=== PATIENT | male | born 1975 | race Two or more races ===

== ENCOUNTER 2020-08-08 12:57 | Observation (INO) | payer BC ==
[2020-08-08] MEDS ORDERED: Aspirin 81 MG Tab.Chew PO STA (13:19)
[2020-08-08] MEDS ORDERED: Ondansetron 4 MG/2 ML SDV IVPUSH PRN (15:41)
[2020-08-08] MEDS ORDERED: Acetaminophen 325 MG Tab PO PRN (15:41)
[2020-08-08] MEDS ORDERED: Enoxaparin 40 MG/0.4 ML Syringe SUBCUT SCH (15:45)
--- NOTE | 2020-08-08 15:51 | PCM.HP.2 ---
H&P History of Present Illness - General Date of Service: 08/08/20 Admit Problem/Dx: Admission Diagnosis/Problem Admission Diagnosis/Problem Chest pain Source of Information: Patient History Limitations: Reports: No Limitations - History of Present Illness Initial Comments - Free Text/Narative: 45-year-old male presents complaining of left-sided chest pain. He has a PMH of HTN, HLD and asthma. Patient reports having intermittent, left-sided chest pain for the past 2 days. The pain is described as a "tightening" pain that will last for approximately 5 minutes before resolving spontaneously. It is not reproducible on touch. It is unrelated to activity and can occur at rest. The pain is associated with SOB and dizziness. He reports having a sore throat. He denies having any pain currently. He is quit smoking tobacco several years ago, drinks alcohol occasionally and denies any illicit drug use. He has not had any fevers, chills, blurry vision, nausea, vomiting, abdominal pain, diarrhea, numbness or tingling in extremities. In the ER, EKG showed NSR with no acute ischemic changes. CXR unremarkable. Troponin was negative. BNP and D-dimer were normal. Patient was given aspirin 324 mg. He was admitted for further evaluation and treatment. chest Pain Score (Numeric/FACES): 5 - Related Data Allergies/Adverse Reactions: Allergies Allergy/AdvReac Type Severity Reaction Status Date / Time No Known Allergies Allergy Verified 08/08/20 13:04 Home Medications: Home Meds Allopurinol [Zyloprim] 100 mg PO DAILY 08/08/20 [History] Past Medical History - Past Health History Medical/Surgical History: Denies Medical/Surgical History Social & Family History - Tobacco Use Tobacco Use Status *Q: Former Tobacco User Used Tobacco, but Quit: Yes Month/Year Tobacco Last Used: 2005 - Caffeine Use Caffeine Use: Reports: None - Recreational Drug Use Recreational Drug Use: No H&P Review of Systems - Review of Systems: Review Of Systems: Comprehensive ROS is negative, except as noted in HPI. Exam - Exam Exam: See Below - Vital Signs Vital Signs: Last Vital Signs Temp 36.8 C 08/08/20 13:01 Pulse 60 08/08/20 15:28 Resp 17 08/08/20 15:28 BP 142/85 H 08/08/20 15:28 Pulse Ox 99 08/08/20 15:28 Weight: 80.739 kg - Exam General: Alert, Oriented, Cooperative, Other (NAD) HEENT: Conjunctiva Clear, EOMI, Pupils Equal, Pupils Reactive Lungs: Clear to Auscultation, Normal Respiratory Effort Cardiovascular: Regular Rate, Regular Rhythm GI/Abdominal Exam: Normal Bowel Sounds, Soft, Non-Tender, No Distention Extremities: Normal Inspection, No Pedal Edema Peripheral Pulses: 2+: Radial (L), Radial (R) Skin: Warm, Dry, Intact Neurological: Cranial Nerves Intact, Reflexes Equal Bilateral, Strength Equal Bilateral, Normal Speech, Normal Tone Neuro Extensive - Mental Status: Alert, Oriented x3, Normal Mood/Affect Psychiatric: Alert, Normal Affect, Normal Mood - Patient Data Lab Results Last 24 hrs: Laboratory Results - last 24 hr 08/08/20 08/08/20 08/08/20 Range/Units 13:05 13:05 13:05 D-Dimer, Quantitative 0.21 (0.0-0.50) mg/L FEU Troponin I < 0.050 (0.000-0.056) ng/mL B-Natriuretic Peptide < 2 (<100) PG/ML Sepsis Event Note - Evaluation Sepsis Screening Result: No Definite Risk - Focused Exam Vital Signs: Vital Signs Temp Pulse Resp BP Pulse Ox 08/08/20 15:28 60 17 142/85 H 99 08/08/20 14:59 57 L 18 138/75 97 08/08/20 14:28 64 17 139/58 L 98 08/08/20 13:58 65 16 139/85 100 08/08/20 13:28 56 L 16 134/58 L 100 08/08/20 13:01 36.8 C 77 16 145/97 H 100 - Problem List (1) Chest pain SNOMED Code(s): 00774708 ICD Code: R07.9 - CHEST PAIN, UNSPECIFIED Status: Acute Current Visit: Yes (2) Hypertension SNOMED Code(s): 35993467 ICD Code: I10 - ESSENTIAL (PRIMARY) HYPERTENSION Status: Acute Current Visit: Yes (3) Hyperlipidemia SNOMED Code(s): 78727695 ICD Code: E78.5 - HYPERLIPIDEMIA, UNSPECIFIED Status: Acute Current Visit: Yes (4) Asthma SNOMED Code(s): 531605788 ICD Code: J45.909 - UNSPECIFIED ASTHMA, UNCOMPLICATED Status: Acute Curre nt Visit: Yes Problem List Initiated/Reviewed/Updated: Yes Orders Last 24hrs: Active Orders 24 hr Category Date Time Status Admission Status [Patient Status] [ADT] Stat ADT 08/08/20 14:42 Active Cardiac Monitoring [RC] . DIRECTED Care 08/08/20 14:42 Active Oxygen Therapy [RC] PRN Care 08/08/20 15:41 Active Up ad Oriana [RC] ASDIRECTED Care 08/08/20 15:41 Active VTE/DVT Education [RC] PER UNIT ROUTINE Care 08/08/20 15:41 Active Vital Signs [RC] Q4H Care 08/08/20 15:41 Active Heart Healthy Diet [DIET] Diet 08/08/20 Lunch Active BASIC METABOLIC PANEL,BMP [CHEM] AM Lab 08/09/20 05:11 Ordered CBC WITH AUTO DIFF [HEME] AM Lab 08/09/20 05:11 Ordered CORONAVIRUS COVID-19 RAC[facility] [MOLEC] Stat Lab 08/08/20 14:35 Ordered MAGNESIUM [CHEM] Routine Lab 08/08/20 15:44 Ordered PHOSPHORUS [CHEM] Routine Lab 08/08/20 15:44 Ordered TROPONIN I [CHEM] Q6H Lab 08/08/20 19:00 Ordered TROPONIN I [CHEM] Q6H Lab 08/09/20 01:00 Ordered TSH [CHEM] Routine Lab 08/08/20 15:44 Ordered Acetaminophen [TylenoL] Med 08/08/20 15:41 Ordered 650 mg PO Q4H PRN Enoxaparin [Lovenox] Med 08/08/20 15:45 Ordered 40 mg SUBCUT Q24H Ondansetron [Zofran] Med 08/08/20 15:41 Ordered 4 mg IVPUSH Q4H PRN Resuscitation Status Routine Resus Stat 08/08/20 15:41 Ordered Medication Orders Acetaminophen (Tylenol) 650 mg PO Q4H PRN PRN Reason: Pain (Mild 1-3)/fever Enoxaparin Sodium (Lovenox) 40 mg SUBCUT Q24H [facility] Ondansetron HCl (Zofran) 4 mg IVPUSH Q4H PRN PRN Reason: Nausea Assessment/Plan Comment:: Assessment and Plan: 1. Chest pain, ACS rule out: - Admit to med/surg. Patient on telemetry. Will trend troponins q6h x 3. - CXR unremarkable. BNP and d-dimer were normal. 2. Past medical history of HTN, HLD and asthma: - Continue home medications: 3. DVT prophylaxis: - Lovenox 40 mg subcut qd.
--- NOTE | 2020-08-08 17:17 | EDM.PDOC ---
ED HPI GENERAL MEDICAL PROBLEM - General Chief Complaint: Chest Pain Stated Complaint: CHEST PAIN Time Seen by Provider: 08/08/20 12:58 Source of Information: Reports: Patient History Limitations: Reports: No Limitations - History of Present Illness INITIAL COMMENTS - FREE TEXT/NARRATIVE: CHIEF COMPLAINT(S): Chest pain HISTORY OF PRESENT ILLNESS: This is a 45-year-old man with a past medical history of hypertension, hyperlipidemia, and asthma who comes to the emergency department with a chief complaint of chest pain. The patient states that approximately 7 hours prior to arrival he started to experience chest pain located on the left side of his chest without any radiation. He describes the pain as 6-8 out of 10. He describes it as sharp. He states that he did have associated shortness of breath but denies any diaphoresis, nausea or vomiting. He states that there are no aggravating symptoms or relieving symptoms and does not know if it is exertional or not. He states that in addition to this he has been experiencing exertional dyspnea and episodes where he feels like he is about to pass out. He has not yet had any syncope. His is at bedside and discussed that they were at the respiratory clinic this morning and they did do lab work, EKG and other evaluation and then were brought here to the emergency department for continued chest pain. The patient states that he does have a family history of cardiac disease. His uncles on his dad's side did have heart issues starting at age 41. Other than that his siblings and his parents do not have any heart issues. He states that currently he has no chest pain. He states that he took 81 mg of aspirin prior to his appointment at respiratory clinic. REVIEW OF SYSTEMS: Constitutional: Denies fever, chills. Eyes: Denies eye pain Ears, Nose, Mouth, & Throat: Denies earache Cardiovascular: Positive for chest pain and presyncope Respiratory: Positive for shortness of breath and exertional dyspnea Gastrointestinal: Denies Nausea, vomiting, diarrhea, hematochezia. Genitourinary: Denies hematuria Skin:Denies a rash MSK: Denies joint pain Neurological: Denies blurred vision, numbness, tingling, weakness Psychiatric: Denies depression PAST MEDICAL HISTORY: As per history of present illness and as reviewed below otherwise noncontributory. SURGICAL HISTORY: As per history of present illness and as reviewed below otherwise noncontributory. SOCIAL HISTORY: As per history of present illness and as reviewed below otherwise noncontributory. FAMILY HISTORY: As per history of present illness and as reviewed below otherwise noncontributory. EXAMINATION OF ORGAN SYSTEMS/BODY AREAS: Constitutional: Blood pressure is 145/97, heart rate 77, respiratory rate 16 with an oxygen saturation of 100% on room air. Temperature 36.8 General: Overall well-appearing man who is in no acute distress. Psychiatric: Appropriate mood and affect. Eyes: No scleral icterus or conjunctival erythema ENMT: Moist mucous membranes. No pharyngeal erythema Cardiovascular: Regular, rate, and rhythm. No gallops, murmurs, or rubs. Bilateral upper extremity pulses symmetric and intact. No peripheral edema. No JVD. Respiratory: Lungs clear to auscultation bilaterally. No wheezes, rales, or rhonchi. Gastrointestinal: Soft, non-tender, non-distended. Normoactive bowel sounds Genitourinary: No suprapubic tenderness Musculoskeletal: Normal range of motion. Skin: No lesions or abrasions. Neurological: Alert, GCS 15 MEDICAL DECISION MAKING AND COURSE IN THE ED WITH INTERPRETATION/REVIEW OF DIAGN OSTIC STUDIES: This is a 45-year-old man with a past medical history of hypertension and hyperlipidemia who comes to the emergency department with acute chest pain approximately 7 hours prior to arrival who was evaluated by physician at respiratory clinic and had laboratory analysis done, EKG and chest x-ray all of which were negative. They were concerned that there was a possible old posterior NM. At this time I do not have those records and they are currently faxing them in. The patient is mildly hypertensive but overall appears well. Given the duration from his symptoms his troponin should have been elevated if this is cardiac in nature. However we will repeat a troponin. We did obtain an EKG here which did not reveal any acute signs of ischemia or evidence of old posterior infarct. There was S1Q3T3 so given the exertional dyspnea and chest pain will obtain a D-dimer to evaluate for pulmonary embolism. I do not believe any other labs or imaging are indicated given they have been done prior to arrival here. We will provide the patient with an additional 243 mg of aspirin. Twelve-lead EKG interpreted by myself. Normal sinus rhythm at a rate of 62 beats per minute. Normal axis. NM interval is 167 ms. QRS duration is [address] segments are normal without elevations or depressions. There is a Q wave in lead III with T wave inversion in lead III. There is a deep S wave in S1.. Hypertrophy is apparent. No changes demonstrated from prior EKG dated at 11:16 AM August 08, 2020. Interpretation: Sinus rhythm with LVH and S1Q3T3 Labs reviewed from prior to arrival reveal a normal CBC a CMP which revealed hyperglycemia at 131, elevated triglycerides at 203. Imaging reviewed which was a chest x-ray from earlier and did not reveal any acute cardiopulmonary process. Laboratory: Repeat troponin is negative. BNP is negative. D-dimer is negative. Given the family history, history of chest pain, and presyncopal episodes with exertional dyspnea I did discuss that I would like to admit him for observation. He was amenable to this plan. I contacted Dr. Beard who accepted the patient for admission. DISPOSITION: The patient was admitted to observation telemetry in stable condition CONDITION: Fair PROCEDURES: None FINAL IMPRESSION(S)/DIAGNOSES: 1. Acute chest pain 2. Acute exertional dyspnea 3. Acute presyncope Omkar Aggarwal M.D. chest Pain Score (Numeric/FACES): 5 - Related Data Allergies Allergy/AdvReac Type Severity Reaction Status Date / Time No Known Allergies Allergy Verified 08/08/20 13:04 Home Meds: Home Meds Allopurinol [Zyloprim] 100 mg PO DAILY 08/08/20 [History] Past Medical History - Past Health History Medical/Surgical History: Denies Medical/Surgical History Social & Family History - Tobacco Use Tobacco Use Status *Q: Former Tobacco User Used Tobacco, but Quit: Yes Month/Year Tobacco Last Used: 2005 - Caffeine Use Caffeine Use: Reports: None - Recreational Drug Use Recreational Drug Use: No ED ROS GENERAL - Review of Systems Review Of Systems: See Below ED EXAM, GENERAL - Physical Exam Exam: See Below Peripheral Pulses: 2+: Radial (L), Radial (R) GI/Abdominal: Normal Bowel Sounds, Soft, Non-Tender, No Distention Extremities: Normal Inspection, No Pedal Edema Course - Vital Signs Last Recorded V/S: Last Vital Signs Temp 36.8 C 08/08/20 13:01 Pulse 92 08/08/20 15:58 Resp 17 08/08/20 15:58 BP 137/82 08/08/20 15:58 Pulse Ox 97 08/08/20 15:58 - Orders/Labs/Meds Orders: Active Orders 24 hr Category Date Time Status Admission Status [Patient Status] [ADT] Stat ADT 08/08/20 14:42 Active Cardiac Monitoring [RC] . DIRECTED Care 08/08/20 14:42 Active Medication Orders Acetaminophen (Tylenol) 650 mg PO Q4H PRN PRN Reason: Pain (Mild 1-3)/fever Enoxaparin Sodium (Lovenox) 40 mg SUBCUT Q24H [facility] Last Admin: 08/08/20 16:16 Dose: 40 mg Documented by: [id number] Ondansetron HCl (Zofran) 4 mg IVPUSH Q4H PRN PRN Reason: Nausea Labs: Laboratory Tests 08/08/20 08/08/20 08/08/20 Range/Units 13:05 13:05 13:05 D-Dimer, Quantitative 0.21 (0.0-0.50) mg/L FEU Phosphorus (2.6-4.7) mg/dL Magnesium (1.8-2.4) mg/dL Troponin I < 0.050 (0.000-0.056) ng/mL B-Natriuretic Peptide < 2 (<100) PG/ML TSH 3rd Generation (0.36-3.74) uIU/mL SARS-CoV-2 RNA (RACHEL) (NEGATIVE) 08/08/20 08/08/20 Range/Units 13:05 15:18 D-Dimer, Quantitative (0.0-0.50) mg/L FEU Phosphorus 3.4 (2.6-4.7) mg/dL Magnesium 2.4 (1.8-2.4) mg/dL Troponin I (0.000-0.056) ng/mL B-Natriuretic Peptide (<100) PG/ML TSH 3rd Generation 0.78 (0.36-3.74) uIU/mL SARS-CoV-2 RNA (RACHEL) NEGATIVE (NEGATIVE) Meds: Medications Generic Name Dose Route Start Last Admin Trade Name Freq PRN Reason Stop Dose Admin Acetaminophen 650 mg 08/08/20 15:41 Tylenol PO Q4H PRN Pain (Mild 1-3)/fever Enoxaparin Sodium 40 mg 08/08/20 15:45 08/08/20 16:16 Lovenox SUBCUT 40 mg Q24H [facility] Administration Ondansetron HCl 4 mg 08/08/20 15:41 Zofran IVPUSH Q4H PRN Nausea Discontinued Medications Generic Name Dose Route Start Last Admin Trade Name [place] PRN Reason Stop Dose Admin Aspirin 243 mg 08/08/20 13:19 08/08/20 13:57 Aspirin PO 08/08/20 13:20 243 mg ONETIME STA Administration Departure - Departure Time of Disposition: 14:42 Disposition: Refer to Observation Condition: Fair Clinical Impression: Chest pain Qualifiers: Chest pain type: unspecified Qualified Code(s): R07.9 - Chest pain, unspecified Sepsis Event Note (ED) - Evaluation Sepsis Screening Result: No Definite Risk - Focused Exam Vital Signs: Vital Signs Temp Pulse Resp BP Pulse Ox 08/08/20 15:28 60 17 142/85 H 99 08/08/20 14:59 57 L 18 138/75 97 08/08/20 14:28 64 17 139/58 L 98 08/08/20 13:58 65 16 139/85 100 08/08/20 13:28 56 L 16 134/58 L 100 08/08/20 13:01 36.8 C 77 16 145/97 H 100 - My Orders Last 24 Hours: My Active Orders 08/08/20 14:42 Admission Status [Patient Status] [ADT] Stat Cardiac Monitoring [RC] . DIRECTED - Assessment/Plan Last 24 Hours: My Active Orders 08/08/20 14:42 Admission Status [Patient Status] [ADT] Stat Cardiac Monitoring [RC] . DIRECTED
[2020-08-08] MEDS ORDERED: Losartan 50 MG Tab PO SCH ×2 (18:30→21:30)
[2020-08-08] MEDS ORDERED: Rosuvastatin 10 MG Tab PO SCH (21:00)
[2020-08-08] MEDS ORDERED: FENOFIBRATE 160 MG PO SCH (21:00)
[2020-08-09 05:40] LABS: BLOOD UREA NITROGEN,BUN 17 mg/dL (7.0-18.0); CARBON DIOXIDE,CO2 29.7 mmol/L (21.0-32.0); CHLORIDE,CL 106 mmol/L (98-107); GLUCOSE RANDOM 101 mg/dL (74-106); SODIUM,NA 142 mmol/L (136-148)
--- NOTE | 2020-08-09 14:38 | PCM.DCSUM1 ---
<George Stoner - Last Filed: 08/09/20 21:44> Discharge Summary - Hospital Course Free Text/Narrative:: 45-year-old male with PMH of HTN and HLD admitted for chest pain ACS rule out. CXR was unremarkable. Troponins trended and were negative. CBC, CMP, BNP, TSH and d-dimer were normal. No events reported on telemetry. No recurrent of chest pain during hospitalization. ECHO ordered and pending at time of discharge. Cardiology referral and scripts provided for zio patch and EKG stress test on discharge. Patient also advised to follow-up with PCP. - Discharge Data Discharge Date: 08/09/20 Discharge Disposition: Home, Self-Care 01 Condition: Stable - Referral to Home Health Primary Care Physician: Gio Estevez MD - Discharge Diagnosis/Problem(s) (1) Chest pain SNOMED Code(s): 19406909 ICD Code: R07.9 - CHEST PAIN, UNSPECIFIED Status: Acute Qualifiers: Chest pain type: unspecified Qualified Code(s): R07.9 - Chest pain, unspecified (2) Hypertension SNOMED Code(s): 47785858 ICD Code: I10 - ESSENTIAL (PRIMARY) HYPERTENSION Status: Acute (3) Hyperlipidemia SNOMED Code(s): 07627423 ICD Code: E78.5 - HYPERLIPIDEMIA, UNSPECIFIED Status: Acute (4) Asthma SNOMED Code(s): 400075128 ICD Code: J45.909 - UNSPECIFIED ASTHMA, UNCOMPLICATED Status: Acute - Patient Instructions Diet: Heart Healthy Diet, Low Sodium Activity: As Tolerated, No Strenuous Activities Notify Provider of: Fever, Increased Pain, Swelling and Redness, Drainage, Nausea and/or Vomiting - Discharge Plan *PRESCRIPTION DRUG MONITORING PROGRAM REVIEWED*: Not Applicable *COPY OF PRESCRIPTION DRUG MONITORING REPORT IN PATIENT SUNIL: Not Applicable Home Medications: Home Meds Losartan [Cozaar] 100 mg PO DAILY 08/08/20 [History] Rosuvastatin [Crestor] 20 mg PO BEDTIME 08/08/20 [History] Oxygen Therapy Mode: Room Air Patient Handouts: Exercise Stress Test, [id number], Heart-Healthy Eating Plan, [id number] Referrals: Rohit Vergara MD [Physician] - 10/08/20 11:00 am Harriett Torres MD [Resident] - 08/21/20 10:00 am - Discharge Summary/Plan Comment DC Time >30 min.: No - Patient Data Vitals - Most Recent: Last Vital Signs Temp 36.9 C 08/09/20 12:01 Pulse 56 L 08/09/20 12:01 Resp 17 08/09/20 12:01 BP 126/84 08/09/20 12:01 Pulse Ox 98 08/09/20 12:01 Weight - Most Recent: 79.016 kg I&O - Last 24 hours: Intake & Output 08/08/20 08/09/20 08/09/20 22:59 06:59 14:59 Intake Total 1440 Output Total 900 Balance 540 Lab Results - Last 24 hrs: Laboratory Results - last 24 hr 08/08/20 08/08/20 08/08/20 Range/Units 13:05 15:18 18:56 WBC (4.0-11.0) K/uL RBC (4.50-5.90) M/uL Hgb (13.0-17.0) g/dL Hct (38.0-50.0) % MCV (80.0-98.0) fL MCH (27.0-32.0) pg MCHC (31.0-37.0) g/dL RDW Std Deviation (28.0-62.0) fl RDW Coeff of Coco (11.0-15.0) % Plt Count (150-400) K/uL MPV (7.40-12.00) fL Neut % (Auto) (48.0-80.0) % Lymph % (Auto) (16.0-40.0) % Cotton % (Auto) (0.0-15.0) % Eos % (Auto) (0.0-7.0) % Baso % (Auto) (0.0-1.5) % Neut # (Auto) (1.4-5.7) K/uL Lymph # (Auto) (0.6-2.4) K/uL Cotton # (Auto) (0.0-0.8) K/uL Eos # (Auto) (0.0-0.7) K/uL Baso # (Auto) (0.0-0.1) K/uL Nucleated RBC % /100WBC Nucleated RBCs # K/uL Sodium (136-148) mmol/L Potassium (3.5-5.1) mmol/L Chloride (98-107) mmol/L Carbon Dioxide (21.0-32.0) mmol/L BUN (7.0-18.0) mg/dL Creatinine (0.8-1.3) mg/dL Est Cr Clr Drug Dosing mL/min Estimated GFR (MDRD) ml/min Glucose (74-106) mg/dL Calcium (8.5-10.1) mg/dL Phosphorus 3.4 (2.6-4.7) mg/dL Magnesium 2.4 (1.8-2.4) mg/dL Troponin I < 0.050 (0.000-0.056) ng/mL TSH 3rd Generation 0.78 (0.36-3.74) uIU/mL SARS-CoV-2 RNA (RACHEL) NEGATIVE (NEGATIVE) 08/09/20 08/09/20 08/09/20 Range/Units 00:58 04:58 04:58 WBC 6.65 (4.0-11.0) K/uL RBC 4.65 (4.50-5.90) M/uL Hgb 13.5 (13.0-17.0) g/dL Hct 42.1 (38.0-50.0) % MCV 90.5 (80.0-98.0) fL MCH 29.0 (27.0-32.0) pg MCHC 32.1 (31.0-37.0) g/dL RDW Std Deviation 42.6 (28.0-62.0) fl RDW Coeff of Coco 13 (11.0-15.0) % Plt Count 194 (150-400) K/uL MPV 10.70 (7.40-12.00) fL Neut % (Auto) 46.3 L (48.0-80.0) % Lymph % (Auto) 41.5 H (16.0-40.0) % Cotton % (Auto) 7.8 (0.0-15.0) % Eos % (Auto) 3.8 (0.0-7.0) % Baso % (Auto) 0.6 (0.0-1.5) % Neut # (Auto) 3.1 (1.4-5.7) K/uL Lymph # (Auto) 2.8 H (0.6-2.4) K/uL Cotton # (Auto) 0.5 (0.0-0.8) K/uL Eos # (Auto) 0.3 (0.0-0.7) K/uL Baso # (Auto) 0.0 (0.0-0.1) K/uL Nucleated RBC % 0.0 /100WBC Nucleated RBCs # 0 K/uL Sodium 142 (136-148) mmol/L Potassium 4.0 (3.5-5.1) mmol/L Chloride 106 (98-107) mmol/L Carbon Dioxide 29.7 (21.0-32.0) mmol/L BUN 17 (7.0-18.0) mg/dL Creatinine 0.9 (0.8-1.3) mg/dL Est Cr Clr Drug Dosing 95.50 mL/min Estimated GFR (MDRD) > 60.0 ml/min Glucose 101 (74-106) mg/dL Calcium 8.5 (8.5-10.1) mg/dL Phosphorus (2.6-4.7) mg/dL Magnesium (1.8-2.4) mg/dL Troponin I < 0.050 (0.000-0.056) ng/mL TSH 3rd Generation (0.36-3.74) uIU/mL SARS-CoV-2 RNA (RACHEL) (NEGATIVE) Med Orders - Current: Current Medications Discontinued Medications Acetaminophen (Tylenol) 650 mg PO Q4H PRN PRN Reason: Pain (Mild 1-3)/fever Aspirin (Aspirin) 243 mg PO ONETIME STA Stop: 08/08/20 13:20 Last Admin: 08/08/20 13:57 Dose: 243 mg Documented by: Enoxaparin Sodium (Lovenox) 40 mg SUBCUT Q24H [facility] Last Admin: 08/08/20 16:16 Dose: 40 mg Documented by: Losartan Potassium (Cozaar) 100 mg PO DAILY [facility] Last Admin: 08/08/20 21:24 Dose: Not Given Documented by: Losartan Potassium (Cozaar) 100 mg PO BEDTIME [facility] Last Admin: 08/08/20 21:31 Dose: 100 mg Documented by: Non-Formulary Medication (Fenofibrate) 160 mg PO BEDTIME [facility] Ondansetron HCl (Zofran) 4 mg IVPUSH Q4H PRN PRN Reason: Nausea Rosuvastatin Calcium (Crestor) 20 mg PO BEDTIME [facility] Last Admin: 08/08/20 21:27 Dose: 20 mg Documented by: <Sohan Beard - Last Filed: 08/10/20 11:10> Discharge Summary - Referral to Home Health Primary Care Physician: Gio Estevez MD - Patient Data Vitals - Most Recent: Last Vital Signs Temp 36.9 C 08/09/20 12:01 Pulse 56 L 08/09/20 12:01 Resp 17 08/09/20 12:01 BP 126/84 08/09/20 12:01 Pulse Ox 98 08/09/20 12:01 Med Orders - Current: Current Medications Discontinued Medications Acetaminophen (Tylenol) 650 mg PO Q4H PRN PRN Reason: Pain (Mild 1-3)/fever Aspirin (Aspirin) 243 mg PO ONETIME STA Stop: 08/08/20 13:20 Last Admin: 08/08/20 13:57 Dose: 243 mg Documented by: Enoxaparin Sodium (Lovenox) 40 mg SUBCUT Q24H [facility] Last Admin: 08/08/20 16:16 Dose: 40 mg Documented by: Losartan Potassium (Cozaar) 100 mg PO DAILY [facility] Last Admin: 08/08/20 21:24 Dose: Not Given Documented by: Losartan Potassium (Cozaar) 100 mg PO BEDTIME [facility] Last Admin: 08/08/20 21:31 Dose: 100 mg Documented by: Non-Formulary Medication (Fenofibrate) 160 mg PO BEDTIME [facility] Ondansetron HCl (Zofran) 4 mg IVPUSH Q4H PRN PRN Reason: Nausea Rosuvastatin Calcium (Crestor) 20 mg PO BEDTIME [facility] Last Admin: 08/08/20 21:27 Dose: 20 mg Documented by: - Free Text/Narrative Note: I have seen and evaluated the patient with the resident. I have discussed findings and treatment plan with resident. I agree with the assessment and plan as documented in the following note.
--- NOTE | 2020-08-13 12:55 | ECHO ---
EXAM DATE: 08/08/20 PATIENT'S AGE: 45 The ECHO report has been scanned into [employer] and can be seen in this patient's EMR (Electronic Medical Record) under the REPORTS section. The report has also been scanned into PACS. EMILI
== END 2020-08-09 12:40 | disposition home or self-care (01) ==
LOC: MW.ED 12:57 → MW.MS 15:37
PROVIDERS: ADMIT Internal Medicine; ATTEND Internal Medicine
DX: R07.9 Chest pain, unspecified (principal); R55 Syncope and collapse; I10 Essential (primary) hypertension; E78.5 Hyperlipidemia, unspecified; J45.909 Unspecified asthma, uncomplicated; Z79.899 Other long term (current) drug therapy; Z20.822 Contact with and (suspected) exposure to COVID-19; Z87.891 Personal history of nicotine dependence
CPT/HCPCS: 36415; 80048; 83735; 83880; 84100; 84443; 84484; 85025; 85379; 87635; 93005; 93306; 96372; 99285; A9270; G0378; J1650; 93010; 99283; U0002

== ENCOUNTER 2021-03-29 06:58 | Day surgery (SDC) | payer BC ==
[2021-03-29] MEDS ORDERED: propofoL 50 ML ONE ×2 (07:35→08:33)
[2021-03-29] MEDS ORDERED: Lidocaine 2% 5 ML SDV ONE (07:35)
--- NOTE | 2021-03-29 07:48 | PCM.PREANE ---
Preanesthetic Assessment - Procedure Proposed Procedure: EGD, Colonoscopy - Anesthesia/Transfusion/Family Hx Anesthesia History: Prior Anesthesia Without Reaction Transfusion History: No Prior Transfusion(s) - Review of Systems General: No Symptoms Pulmonary: No Symptoms (Asthma PRN MDI) Cardiovascular: No Symptoms (HTN) Gastrointestinal: No Symptoms (GERD) Neurological: No Symptoms Other: Reports: None - Physical Assessment NPO Status Date: 03/27/21 NPO Status Time: 20:00 (Solids, >8 hr Liq) Vital Signs: Last Vital Signs Temp 97.5 F 03/29/21 07:10 Pulse 57 L 03/29/21 07:10 Resp 15 03/29/21 07:10 BP 152/87 H 03/29/21 07:10 Pulse Ox 100 03/29/21 07:10 Height: 5 ft 6 in Weight: 78.471 kg ASA Class: 2 Mental Status: Alert & Oriented x3 Airway Class: Mallampati = 4 Dentition: Reports: Normal Dentition Thyro-Mental Finger Breadths: 3 Mouth Opening Finger Breadths: 3 ROM/Head Extension: Full Lungs: Clear to Auscultation, Normal Respiratory Effort Cardiovascular: Regular Rate, Regular Rhythm - Allergies Allergies/Adverse Reactions: Allergies Allergy/AdvReac Type Severity Reaction Status Date / Time No Known Allergies Allergy Verified 03/25/21 11:55 - Acknowledgements Anesthesia Type Planned: General Anesthesia Pt an Appropriate Candidate for the Planned Anesthesia: Yes Alternatives and Risks of Anesthesia Discussed w Pt/Guardian: Yes Pt/Guardian Understands and Agrees with Anesthesia Plan: Yes PreAnesthesia Questionnaire - Past Health History Medical/Surgical History: Denies Medical/Surgical History HEENT History: Reports: None Cardiovascular History: Reports: High Cholesterol, Hypertension Respiratory History: Reports: Asthma Other Respiratory History: uses inhaler every 1-2 months Gastrointestinal History: Reports: GERD Genitourinary History: Reports: None Musculoskeletal History: Reports: Gout Neurological History: Reports: None Psychiatric History: Reports: None Endocrine/Metabolic History: Reports: None Hematologic History: Reports: None Immunologic History: Reports: None Oncologic (Cancer) History: Reports: None Dermatologic History: Reports: None - Infectious Disease History Infectious Disease History: Reports: Chicken Pox, Measles - Past Surgical History Head Surgeries/Procedures: Reports: None HEENT Surgical History: Reports: Other (See Below) Other HEENT Surgeries/Procedures: surgery on neck at age 16 for Torticollis Cardiovascular Surgical History: Reports: None Respiratory Surgical History: Reports: None GI Surgical History: Reports: None Male Surgical History: Reports: None Endocrine Surgical History: Reports: None Neurological Surgical History: Reports: None Musculoskeletal Surgical History: Reports: None Oncologic Surgical History: Reports: None Dermatological Surgical History: Reports: None - SUBSTANCE USE Tobacco Use Status *Q: Former Tobacco User Tobacco Use Within Last Twelve Months: No Recreational Drug Use History: No - HOME MEDS Home Medications: Home Meds Losartan [Cozaar] 100 mg PO QAM 08/08/20 [History] Rosuvastatin [Crestor] 10 mg PO BEDTIME 08/08/20 [History] Albuterol [Ventolin HFA] 2 puff INH Q4H PRN 03/25/21 [History] Fenofibrate 160 mg PO DAILY 03/25/21 [History] Omeprazole 40 mg PO DAILY 03/25/21 [History] allopurinoL [Zyloprim] 100 mg PO DAILY 03/25/21 [History] - CURRENT (IN HOUSE) MEDS Current Meds: Current Medications Lactated Ringer's (Ringers, Lactated) 1,000 mls @ 125 mls/hr IV ASDIRECTED HOMERO Last Admin: 03/29/21 07:33 Dose: 125 mls/hr Documented by: Discontinued Medications Propofol (Diprivan 50 Ml) Confirm Administered Dose 50 mls @ as directed .ROUTE .STK-MED ONE Stop: 03/29/21 07:36 Lidocaine (Lidocaine 2% 5 Ml Sdv) Confirm Administered Dose 5 ml .ROUTE .STK-MED ONE Stop: 03/29/21 07:36
[2021-03-29] MEDS ORDERED: Lactated Ringers 1,000 ML IV SCH ×2 (08:30→09:30)
[2021-03-29] MEDS ORDERED: fentaNYL 100 MCG/2 ML SDV ONE (08:39)
--- NOTE | 2021-03-29 09:30 | PCM.OPNOTE ---
- General Post-Op/Procedure Note Date of Surgery/Procedure: 03/29/21 Operative Procedure(s): Esophagogastroduodenoscopy with biopsy. Colonoscopy. Pre Op Diagnosis: Hematemesis. Unexplained weight loss. Chronic gastroesophageal reflux disease. Post-Op Diagnosis: Mild chronic gastritis. No evidence of colonic neoplasia. Anesthesia Technique: MAC (ASA II) Primary Surgeon: Baldemar Covington Letter Carrier: Ben Amanda Condition: Good Free Text/Narrative:: DICTATION [id number] CPT CODE [id number]
--- NOTE | 2021-03-29 09:37 | PCM.POSTAN ---
POST ANESTHESIA ASSESSMENT - MENTAL STATUS Mental Status: Alert, Oriented - VITAL SIGNS Vital Signs: Last Vital Signs Temp 97.5 F 03/29/21 07:10 Pulse 57 L 03/29/21 07:10 Resp 15 03/29/21 07:10 BP 152/87 H 03/29/21 07:10 Pulse Ox 100 03/29/21 07:10 - RESPIRATORY Respiratory Status: Respiratory Rate WNL, Airway Patent, O2 Saturation Stable - CARDIOVASCULAR CV Status: Pulse Rate WNL, Blood Pressure Stable - GASTROINTESTINAL GI Status: No Symptoms - PAIN Pain Score: 0 - POST OP HYDRATION Hydration Status: Adequate & Stable
--- NOTE | 2021-03-29 09:42 | PCM48HPAN ---
Post Anesthesia Note - EVALUATION WITHIN 48HRS OF ANESTHETIC Vital Signs in Normal Range: Yes Patient Participated in Evaluation: Yes Respiratory Function Stable: Yes Airway Patent: Yes Cardiovascular Function Stable: Yes Hydration Status Stable: Yes Pain Control Satisfactory: Yes Nausea and Vomiting Control Satisfactory: Yes Mental Status Recovered: Yes Vital Signs: Last Vital Signs Temp 97.5 F 03/29/21 07:10 Pulse 57 L 03/29/21 07:10 Resp 15 03/29/21 07:10 BP 152/87 H 03/29/21 07:10 Pulse Ox 100 03/29/21 07:10 - COMMENTS/OBSERVATIONS Free Text/Narrative:: Pt doing well post-op. VSS. No apparent anesthetic complications. Dr. Cortez Laughlin
--- NOTE | 2021-03-29 14:06 | OR ---
SURGEON: Baldemar Covington M.D. DATE OF PROCEDURE: 03/29/2021 OPERATION PERFORMED: Esophagogastroduodenoscopy with gastric biopsy. PRIMARY SURGEON: Baldemar Covington M.D. SHUFFLE BOARD OPERATOR: Logistics Supervisor: DONY Rawls student. ANESTHESIA: MAC. ASA CLASSIFICATION: II. PREOPERATIVE DIAGNOSES: 1. Hematemesis. 2. Abnormal weight loss. 3. Chronic gastroesophageal reflux disease. POSTOPERATIVE DIAGNOSIS: Chronic gastritis. DESCRIPTION OF PROCEDURE: The patient was taken to the endoscopy room and positioned on the endoscopy table in the left lateral decubitus position. Time-out was called for appropriate identification of the patient and procedure. Monitored anesthesia care was provided. The bite block was placed between the patient's teeth. The gastroscope was inserted through the bite block into the oropharynx and advanced without difficulty through the esophagus and stomach into the duodenum, where examination was now carried out in a retrograde fashion. The duodenum showed no acute inflammatory changes or ulcerations. The gastroscope was withdrawn into the stomach that did show a mild nonspecific appearing gastritis. Antral biopsies were obtained to look for the presence of Helicobacter pylori. The gastroscope was then retroflexed to visualize the proximal stomach. No ulcers or polyps were noted proximally. No acute or significant hiatal hernia was noted in a retroflexed view. The gastroscope was then straightened and slowly withdrawn, carefully visualizing the greater and lesser curvatures. Again, no ulcers or polyps were seen on withdrawal of the scope. The GE junction was well defined and showed no acute inflammatory changes or ulcerations. The esophagus demonstrated good contractility. No mid or proximal lesions were identified. The vocal cords were briefly visualized as the scope was withdrawn and noted to move symmetrically. The gastroscope was then removed with the patient having tolerated this portion of the procedure well. Following colonoscopy, he was taken to recovery room in stable condition. MEENU / CYNTHIA /[id number]
--- NOTE | 2021-03-29 15:30 | OR ---
SURGEON: Baldemar Covington M.D. DATE OF PROCEDURE: 03/29/2021 OPERATION PERFORMED: Colonoscopy. PRIMARY SURGEON: Baldemar Covington M.D. ADMISSION SPECIALIST: educational assistant: DONY Rawls student. ANESTHESIA: MAC. ASA CLASSIFICATION: II. PREOPERATIVE DIAGNOSIS: Unexplained weight loss. POSTOPERATIVE DIAGNOSIS: No evidence of colonic neoplasia. DESCRIPTION OF PROCEDURE: With the patient having completed upper GI endoscopy, he was maintained in the left lateral decubitus position. The colonoscope was inserted into the rectum and advanced with minimal difficulty to the cecum. The cecum was identified by internal landmarks and external pressure. The colonoscope was retroflexed to visualize the ascending colon from below, then straightened and slowly withdrawn. The cecum, ascending colon, hepatic flexure, transverse colon, splenic flexure, descending colon, sigmoid colon, and rectum were very well visualized. No tumors, polyps, diverticula, or angiodysplastic changes were noted anywhere in the lower gastrointestinal tract. Once the colonoscope was withdrawn to the rectum, it was retroflexed to visualize the anal orifice from above. Again, no tumors or polyps were seen. There were no acute hemorrhoidal changes. The colonoscope was then straightened, the rectum aspirated, and the colonoscope removed. The patient tolerated the procedure well and was taken to recovery room in satisfactory condition. MEENU / CYNTHIA /[id number]
== END 2021-03-29 10:05 | disposition home or self-care (01) ==
LOC: MW.SDS 06:58
PROVIDERS: ATTEND Surgery
DX: R63.4 Abnormal weight loss (principal); K21.9 Gastro-esophageal reflux disease without esophagitis; K29.50 Unspecified chronic gastritis without bleeding; J45.909 Unspecified asthma, uncomplicated; E78.00 Pure hypercholesterolemia, unspecified; I10 Essential (primary) hypertension; Z79.899 Other long term (current) drug therapy; Z98.890 Other specified postprocedural states; Z87.891 Personal history of nicotine dependence
CPT/HCPCS: 43239; 45378; 88305; 88342; J2704; J3010; J7120

== ENCOUNTER 2023-04-18 01:14 | Emergency (ER) | payer BC | END 2023-04-18 01:33 | LOC: MW.ED 01:14 | DX: Z02.89 Encounter for other administrative examinations (principal); I10 Essential (primary) hypertension; E78.00 Pure hypercholesterolemia, unspecified; K21.9 Gastro-esophageal reflux disease without esophagitis; Z79.899 Other long term (current) drug therapy | CPT/HCPCS: 99282; 99283 ==

== ENCOUNTER 2025-01-19 14:46 | Emergency (ER) | payer BC ==
[2025-01-19 15:17] LABS: BASOPHILS ABSOLUTE AUTO 0.05 K/uL (0.00-0.20); BASOPHILS PERCENT AUTO 0.7 % (0.0-1.0); EOSINOPHILS ABSOLUTE AUTO 0.17 K/uL (0.00-0.45); EOSINOPHILS PERCENT AUTO 2.5 % (0.0-6.0); IMMATURE GRAN ABSOLUTE AUTO 0.02 K/uL (0.00-0.05); IMMATURE GRAN PERCENT AUTO 0.3 % (0.0-0.4); LYMPHOCYTES ABSOLUTE AUTO 2.72 K/uL (1.00-4.80); LYMPHOCYTES PERCENT AUTO 40.5 % (24.0-44.0); MEAN PLATELET VOLUME 9.9 fL (9.4-12.4); MONOCYTES ABSOLUTE AUTO 0.63 K/uL (0.00-0.80); MONOCYTES PERCENT AUTO 9.4 % (0.0-8.0); NEUTROPHILS ABSOLUTE AUTO 3.12 K/uL (1.80-7.70); NEUTROPHILS PERCENT AUTO 46.6 % (41.0-71.0); NRBC ABSOLUTE 0.00 K/uL (0.00-0.02); NRBC PERCENT 0.0 /100WBC (0.0-0.2); PLATELET COUNT,PLT 217 K/uL (150-400); RED BLOOD CELL COUNT 4.29 M/uL (4.52-5.90); WHITE BLOOD CELL COUNT,WBC 6.71 K/uL (3.9-11.3)
[2025-01-19] MEDS: Ketorolac 30 MG/ML SDV IVPUSH ONE (15:22)
[2025-01-19 15:39] LABS: A/G RATIO 1.1 (0.9-1.6); ALANINE AMINOTRANSFERASE,ALT 44.0 IU/L (14-63); ASPARTATE AMNIOTRANSFERASE,AST 29.0 IU/L (15-37); BILIRUBIN TOTAL 0.3 mg/dL (0.2-1.0); BLOOD UREA NITROGEN,BUN 16.0 mg/dL (7.0-18.0); CARBON DIOXIDE,CO2 25.9 mmol/L (21.0-32.0); CHLORIDE,CL 105.0 mmol/L (98-107); CREATININE 1.1 mg/dL (0.8-1.3); EST CRCL DRUG DOSING (CG) 74.92 mL/min; GLUCOSE RANDOM 113.0 mg/dL (74-106); POTASSIUM,K 3.7 mmol/L (3.5-5.1); PROTEIN TOTAL,TP 7.2 g/dL (6.4-8.2); SODIUM,NA 140.0 mmol/L (136-148)
[2025-01-19 15:49] LABS: ESTIMATED GFR 83.0 mL/min (>60)
[2025-01-19 16:25] LABS: APPEARANCE,URINE CLEAR; GLUCOSE,URINE NEGATIVE (NEGATIVE); OCCULT BLOOD,URINE NEGATIVE (NEGATIVE)
== END 2025-01-19 16:52 | disposition home or self-care (01) ==
LOC: MW.ED 14:46
DX: N40.0 Benign prostatic hyperplasia without lower urinary tract symptoms (principal); R30.0 Dysuria; K59.00 Constipation, unspecified; I10 Essential (primary) hypertension; E78.00 Pure hypercholesterolemia, unspecified; Z79.899 Other long term (current) drug therapy
CPT/HCPCS: 36415; 74018; 74018-26; 80053; 81003; 85025; 96361; 96374; 99283-25; A9270-GY; J1885; J7030